=== PATIENT | female | born 1985 | race Caucasian/White ===

== ENCOUNTER 2018-08-08 18:33 | Emergency (ER) | payer MEDICAID ==
[~2018-08-08] VITALS: Ht 170.2 cm; Wt 83.1 kg
[~2018-08-08 18:33] MED LIST: BACL20TA84 PO; LANS30CA37 PO; LORA1TAB PO; NORCO10T PO
[2018-08-08 19:01] VITALS: BP 104/68
== END 2018-08-09 00:19 | disposition left against medical advice (07) ==
LOC: ER 18:35
DX: R51 Headache (principal); Z53.21 Procedure and treatment not carried out due to patient leaving prior to being seen by health care provider

== ENCOUNTER 2020-04-26 08:17 | Emergency (ER) | payer MEDICAID ==
[~2020-04-26] VITALS: Ht 167.6 cm; Wt 83.0 kg
[2020-04-26 08:21] VITALS: BP 120/45
[2020-04-26] MEDS ORDERED: proparacaine 0.5% ophthalmic drops 15ml EACHEYE ONE (09:10)
[2020-04-26] MEDS ORDERED: ciprofloxacin 0.3% 2.5ml ophthalmic solution LEFTEYE ONE (10:00)
== END 2020-04-26 10:23 | disposition home or self-care (01) ==
LOC: ER 08:18
DX: S05.02XA Injury of conjunctiva and corneal abrasion without foreign body, left eye, initial encounter (principal); G89.29 Other chronic pain; Z98.890 Other specified postprocedural states; Z98.51 Tubal ligation status; Z56.0 Unemployment, unspecified; Z79.899 Other long term (current) drug therapy; X58.XXXA Exposure to other specified factors, initial encounter; Y93.89 Activity, other specified; Y92.89 Other specified places as the place of occurrence of the external cause; Y99.8 Other external cause status
CPT/HCPCS: 99283

== ENCOUNTER 2021-04-09 18:26 | Emergency (ER) | payer MEDICAID ==
[~2021-04-09] VITALS: Ht 175.3 cm; Wt 81.8 kg
[2021-04-09] MEDS ORDERED: HYDROcodone/acetaminophen 10/325mg tab PO ONE (18:50)
[2021-04-09] MEDS ORDERED: LIDOcaine 1% w/epiNEPHrine 1:200,000 30ml vial SQ ONE (18:50)
--- NOTE | 2021-04-09 19:40 | NUR ---
Jonoant shapped laceration to tip of 4th finger on R hand. Bleeding controled.
--- NOTE | 2021-04-09 19:45 | NUR ---
Dr. Villatoro at bedside to suture tip of R 4th finger.
[2021-04-09] MEDS ORDERED: HYDR-3972 PO (20:32)
[2021-04-09] MEDS ORDERED: CEPH-585 PO (20:32)
[2021-04-09] MEDS ORDERED: cephalexin 250mg capsule PO ONE (20:35)
--- NOTE | 2021-04-09 20:45 | NUR ---
Wound on 4th finger of R hand cleaned and dressed with a non-stick dressing, gauze, and placed in a finger splint. Pt given and understands d/c instructions. Ambulatory with a steady gait.
[2021-04-09 20:51] VITALS: BP 108/56
== END 2021-04-09 20:45 | disposition home or self-care (01) ==
LOC: ER 18:27
DX: S62.634B Displaced fracture of distal phalanx of right ring finger, initial encounter for open fracture (principal); G89.29 Other chronic pain; F17.200 Nicotine dependence, unspecified, uncomplicated; Z98.891 History of uterine scar from previous surgery; Z98.51 Tubal ligation status; Z56.0 Unemployment, unspecified; Z88.1 Allergy status to other antibiotic agents; Z79.899 Other long term (current) drug therapy; W22.8XXA Striking against or struck by other objects, initial encounter; Y93.89 Activity, other specified; Y92.89 Other specified places as the place of occurrence of the external cause; Y99.8 Other external cause status
CPT/HCPCS: 12001; 73130; 99283

== ENCOUNTER 2023-02-09 14:26 | Emergency (ER) | payer MEDICAID ==
[~2023-02-09] VITALS: Ht 170.2 cm; Wt 73.6 kg
[2023-02-09 15:08] LABS: CLARITY,URINE CLOUDY (Clear); GLUCOSE, URINE NEGATIVE (Neg); KETONES,URINE TRACE mg/dl (Neg); LEUKOCYTE ESTERASE ,URINE NEGATIVE (Neg); NITRITES, URINE NEGATIVE (Neg); OCCULT BLOOD,URINE LARGE (Neg); PROTEIN,URINE 100 mg/dl (Neg)
[2023-02-09 15:09] LABS: URINE HCG NEGATIVE (NEG)
[2023-02-09 15:16] LABS: UA COLLECTION TYPE CLN CATCH MIDSTREAM
[2023-02-09 15:17] LABS: BACTERIA,URINE FEW /HPF (Neg); COLOR,URINE DARK YELLOW (Yellow); MUCUS STRANDS NONE SEEN /LPF (Neg); RBC,URINE TNTC /HPF (0-2); SQUAMOUS EPITHELIAL CELL,UR FEW /LPF (FEW); WBC,URINE 0-4 /HPF (0-4)
[2023-02-09 15:27] LABS: BASOPHILS % (AUTO) 0.4 % (0-1); EOSINOPHILS # (AUTO) 0.1 X10'3 (0-0.9); EOSINOPHILS % (AUTO) 1.8 % (0-6); HEMATOCRIT 38.4 % (35.0-45.0); HEMOGLOBIN 12.4 g/dl (12.0-16.0); LYMPHOCYTES # (AUTO) 1.6 X10'3 (1.1-4.8); LYMPHOCYTES % (AUTO) 28.9 % (21-51); MEAN CORPUSCULAR HEMOGLOBIN 25.5 PG (27.0-31.0); MEAN CORPUSCULAR HGB CONC 32.4 g/dL (33.0-36.5); MEAN CORPUSCULAR VOLUME 78.8 FL (78-98); MEAN PLATELET VOLUME 7.3 FL (7.4-10.4); MONOCYTES # (AUTO) 0.4 X10'3 (0-0.9); NEUTROPHILS # (AUTO) 3.3 X10'3 (1.8-7.7); NEUTROPHILS % (AUTO) 60.9 % (42-75); PLATELET COUNT 240 X10'3 (140-440); RED BLOOD COUNT 4.87 X10'6 (4.20-5.60); RED CELL DISTRIBUTION WIDTH 18.2 % (11.5-14.5); WHITE BLOOD COUNT 5.4 X10'3 (4.5-11.0)
[2023-02-09 15:38] LABS: ALANINE AMINOTRANSFERASE 20 U/L (12-78); ALBUMIN/GLOBULIN RATIO 1.3 (1.1-1.5); ALKALINE PHOSPHATASE 54 IU/L (46-116); ANION GAP 11 (8-16); ASPARTATE AMINO TRANSFERASE 14 U/L (10-37); BILIRUBIN,TOTAL 0.7 MG/DL (0.1-1.0); BLOOD UREA NITROGEN 9 MG/DL (7-18); BUN/CREATININE RATIO 10.5 (10.0-20.0); CALCIUM 8.8 MG/DL (8.5-10.1); CHLORIDE 108 MMOL/L (99-107); CREATININE 0.86 MG/DL (0.40-0.90); GLUCOSE 106 MG/DL (70-104); LIPASE 194 U/L (73-393); POTASSIUM 3.6 MMOL/L (3.5-5.1); SODIUM 146 MMOL/L (135-145); TOTAL CARBON DIOXIDE 26.7 MMOL/L (24-32); TOTAL PROTEIN 7.2 G/DL (6.4-8.2); eGFR 74 ML/MIN
--- NOTE | 2023-02-09 17:23 | NUR ---
AT BEDSIDE FOR PELVIC EXAM WITH OBDULIO ONTIVEROS.
[2023-02-09] MEDS ORDERED: ketorolac tromethamine 15mg/ml inj. IM ONE (17:45)
[2023-02-09 18:03] VITALS: BP 118/70
== END 2023-02-09 18:12 | disposition home or self-care (01) ==
LOC: ER 14:27
DX: N93.9 Abnormal uterine and vaginal bleeding, unspecified (principal); R10.30 Lower abdominal pain, unspecified; G89.29 Other chronic pain; Z98.51 Tubal ligation status; Z98.891 History of uterine scar from previous surgery; Z56.0 Unemployment, unspecified; Z79.899 Other long term (current) drug therapy
CPT/HCPCS: 36415; 80053; 81001; 81025; 83690; 85025; 99284; J1885; A6449